=== PATIENT | male | born 1960 | race Caucasian/White ===

== ENCOUNTER → 2017-04-02 | Outpatient (CLI) | payer MEDICARE, MEDICAID ==
[~2017-04-02] MED LIST: AMIT10TA PO; ASPI-515 PO; ATEN25TA PO; CYCL-259 PO; FENTANYL PF 100 MCG/2ML ONE; FLUMAZENIL 0.1 MG/1 ML, 5ML ONE; LAMO100T PO; LAMO25TA PO; LEVE100020 PO; LEVE500T53 PO; LEVE750T37 PO; MIDAZOLAM 1 MG/ML, 5ML ONE; NALOXONE 1 MG/ML, 2ML ONE; OMEP-110 PO; OXYC1TAB7 PO; PAIN MED; PANT40TA5 PO; PHEN100C PO; POLY17PO5 PO
== END | disposition home or self-care (01) ==
LOC: RAD 09:30
PROVIDERS: ATTEND Physical Medicine & Rehabilitation
DX: M48.02 Spinal stenosis, cervical region (principal); M50.31 Other cervical disc degeneration, high cervical region; M47.812 Spondylosis without myelopathy or radiculopathy, cervical region
CPT/HCPCS: 72141; 99156; 99157; J2250; J3010; J2310